=== PATIENT | male | born 1945 | race Caucasian/White ===

== ENCOUNTER 2025-04-28 15:15 | Inpatient (IN) ==
[2025-04-28] MEDS: 0.9 % SODIUM CHLORIDE 1,000 ML IV ONE ×2 (15:41→18:23)
[2025-04-28 16:16] LABS: Basophils # (Auto) 0.03 K/mcL (0.00-0.30); Basophils % (Auto) 0.2 % (0.0-2.0); Eosinophils # (Auto) 0.02 K/mcL (0.00-0.70); Eosinophils % (Auto) 0.1 % (0.0-7.0); Hematocrit 35.8 % (40.1-51.0); Hemoglobin 11.4 g/dL (13.7-17.5); Lymphocytes # (Auto) 0.52 K/mcL (1.50-4.80); Lymphocytes % (Auto) 3.1 % (15.5-49.0); Mean Corpuscular HGB Conc 31.8 g/dL (31.0-36.0); Monocytes # (Auto) 0.77 K/mcL (0.10-0.90); Monocytes % (Auto) 4.6 % (1.0-12.0); Neutrophils % (Auto) 91.5 % (38.0-78.0); Platelet Count 275 K/mcL (140-440); RBC 3.54 M/mcL (4.63-6.08); WBC 16.6 K/mcL (4.5-11.0)
[2025-04-28 16:45] LABS: ALT/SGPT 10 U/L (<40); AST/SGOT 23 U/L (<40); Albumin 3.4 gm/dL (3.2-5.2); Albumin/Globulin Ratio 1.2 (1.0-2.3); Alkaline Phosphatase 118 U/L (39-117); Anion Gap 15.0 (8.0-16.0); Bilirubin,Total 0.6 mg/dL (0.1-1.0); Blood Urea Nitrogen 47 mg/dL (8-23); Calcium 8.5 mg/dL (8.6-10.4); Carbon Dioxide 12 mmol/L (22-30); Chloride 112 mmol/L (96-108); Globulin 2.8 gm/dL (2.2-3.7); Glucose 101 mg/dL (70-105); Potassium 4.1 mmol/L (3.3-5.1); Sodium 139 mmol/L (133-145); Thyroid Stimulating Hormone 1.53 uIU/mL (0.27-5.01)
[2025-04-28] MEDS: cefTRIAXone 1 GM VIAL IV ONE (17:07)
[2025-04-28 19:17] LABS: Anion Gap 14.0 (8.0-16.0); Blood Urea Nitrogen 45 mg/dL (8-23); Calcium 7.5 mg/dL (8.6-10.4); Carbon Dioxide 10 mmol/L (22-30); Chloride 117 mmol/L (96-108); Glucose 89 mg/dL (70-105); Potassium 4.4 mmol/L (3.3-5.1); Sodium 141 mmol/L (133-145)
[2025-04-28 20:43] LABS: Bacteria,Urine Many /hpf (0); Bilirubin,Urine NEGATIVE (Negative); Color,Urine LT. YELLOW; Glucose,Urine (UA) NEGATIVE (Negative); Ketones,Urine NEGATIVE (Negative); Leukocyte Esterase,Urine LARGE /uL (Negative); PH,Urine 7.0 (5.0-9.0); Protein,Urine 100 mg/dL (Negative); Specific Gravity,Urine 1.010 (1.000-1.035); Urobilinogen,Urine 0.2 mg/dL
[2025-04-28] MEDS: 0.9 % SODIUM CHLORIDE 1,000 ML IV SCH (22:14)
[2025-04-29] MEDS ORDERED: POTASSIUM CHLORIDE 40 MEQ in DEXTROSE 5% IN WATER 500 ML IV PRN (00:48)
[2025-04-29] MEDS ORDERED: POTASSIUM CHLORIDE 20 MEQ TABLET PO PRN (00:48)
[2025-04-29] MEDS ORDERED: ACETAMINOPHEN 325 MG TABLET PO PRN (00:48)
[2025-04-29] MEDS ORDERED: POLYETHYLENE GLYCOL 3350 17 GM PACKET PO PRN (00:48)
[2025-04-29] MEDS ORDERED: IPRATROPIUM/ALBUTEROL 3 ML AMPUL.NEB NEB PRN (00:48)
[2025-04-29] MEDS ORDERED: METOCLOPRAMIDE 10 MG/2 ML VIAL IV PRN (00:48)
[2025-04-29] MEDS ORDERED: ONDANSETRON 4 MG/2 ML VIAL IV PRN (00:48)
[2025-04-29] MEDS: CEFEPIME 1 GM VIAL ONE (01:48)
[2025-04-29] MEDS: SODIUM BICARBONATE VIAL 150 MEQ in WATER FOR INJECTION,STERILE 850 ML IV SCH ×3 (01:56→16:35)
[2025-04-29] MEDS: CEFEPIME 1 GM VIAL IV SCH ×2 (01:56→11:05)
[2025-04-29] MEDS: 0.9 % SODIUM CHLORIDE 10 ML SYRINGE IV SCH ×2 (01:57→08:59)
[2025-04-29] MEDS ORDERED: 0.9 % SODIUM CHLORIDE 10 ML SYRINGE IV PRN (06:00)
[2025-04-29 06:45] LABS: Creatine Kinase 834 U/L (24-195)
[2025-04-29 07:04] LABS: ALT/SGPT 12 U/L (<40); AST/SGOT 45 U/L (<40); Albumin 3.4 gm/dL (3.2-5.2); Albumin/Globulin Ratio 1.3 (1.0-2.3); Alkaline Phosphatase 116 U/L (39-117); Anion Gap 17.0 (8.0-16.0); Bilirubin,Direct 0.2 mg/dL (<0.3); Bilirubin,Total 0.6 mg/dL (0.1-1.0); Blood Urea Nitrogen 41 mg/dL (8-23); Calcium 8.4 mg/dL (8.6-10.4); Carbon Dioxide 12 mmol/L (22-30); Chloride 118 mmol/L (96-108); Globulin 2.6 gm/dL (2.2-3.7); Glucose 77 mg/dL (70-105); Phosphorous 4.7 mg/dL (2.5-4.5); Potassium 3.9 mmol/L (3.3-5.1); Sodium 147 mmol/L (133-145); Triglycerides 61 mg/dL (<150); Uric Acid 6.1 mg/dL (2.5-8.0)
[2025-04-29] MEDS ORDERED: HEPARIN 500 UNIT/5 ML SYRINGE IV ONE (08:28)
[2025-04-29] MEDS ORDERED: LIDOCAINE 1% 10 ML VIAL SQ ONE (08:28)
[2025-04-29] MEDS ORDERED: SODIUM CHLORIDE IRRIG SOLUTION 250 ML BOTTLE IRR ONE (08:28)
[2025-04-29] MEDS: SODIUM BICARBONATE 650 MG TABLET PO ONE ×2 (08:41→09:11)
[2025-04-29] MEDS: DEXTROSE 5% IN WATER 500 ML IV ONE (08:53)
[2025-04-29] MEDS: DOCUSATE SODIUM 100 MG CAPSULE PO SCH (08:57)
[2025-04-29] MEDS: HEPARIN 10 UNITS/ML 5ML FLUSH IV SCH ×2 (08:57)
[2025-04-29] MEDS: HEPARIN 5,000 UNIT/ML VIAL SQ SCH (08:57)
[2025-04-29 09:08] LABS: Basophils # (Auto) 0.04 K/mcL (0.00-0.30); Basophils % (Auto) 0.2 % (0.0-2.0); Eosinophils # (Auto) 0.03 K/mcL (0.00-0.70); Eosinophils % (Auto) 0.2 % (0.0-7.0); Hematocrit 35.0 % (40.1-51.0); Hemoglobin 11.2 g/dL (13.7-17.5); Lymphocytes # (Auto) 0.90 K/mcL (1.50-4.80); Lymphocytes % (Auto) 5.5 % (15.5-49.0); Mean Corpuscular HGB Conc 32.0 g/dL (31.0-36.0); Monocytes # (Auto) 0.89 K/mcL (0.10-0.90); Monocytes % (Auto) 5.4 % (1.0-12.0); Neutrophils % (Auto) 88.2 % (38.0-78.0); Platelet Count 273 K/mcL (140-440); RBC 3.55 M/mcL (4.63-6.08); WBC 16.4 K/mcL (4.5-11.0)
[2025-04-29] MEDS: LABETALOL HCL 20 MG/4 ML VIAL IV PRN (09:11)
[2025-04-29 10:04] LABS: Polychromasia 1+ (None Seen); RBC Morphology ABNORMAL (Normal)
[2025-04-29] MEDS ORDERED: SODIUM BICARBONATE VIAL 150 MEQ in WATER FOR INJECTION,STERILE 850 ML IV SCH (11:00)
[2025-04-29 14:44] LABS: Anion Gap 14.0 (8.0-16.0); Blood Urea Nitrogen 39 mg/dL (8-23); Calcium 7.3 mg/dL (8.6-10.4); Carbon Dioxide 17 mmol/L (22-30); Chloride 109 mmol/L (96-108); Glucose 104 mg/dL (70-105); Potassium 2.7 mmol/L (3.3-5.1); Sodium 140 mmol/L (133-145)
[2025-04-29] MEDS: POTASSIUM CHLORIDE 10 MEQ/100 ML BAG IV SCH (15:11)
[2025-04-29] MEDS: METOPROLOL TARTRATE 25 MG TABLET PO SCH (21:49)
[2025-04-30 06:31] LABS: ALT/SGPT 10 U/L (<40); AST/SGOT 30 U/L (<40); Albumin 2.8 gm/dL (3.2-5.2); Albumin/Globulin Ratio 1.2 (1.0-2.3); Alkaline Phosphatase 85 U/L (39-117); Anion Gap 10.0 (8.0-16.0); Bilirubin,Direct 0.4 mg/dL (<0.3); Bilirubin,Total 1.0 mg/dL (0.1-1.0); Blood Urea Nitrogen 39 mg/dL (8-23); Calcium 7.9 mg/dL (8.6-10.4); Carbon Dioxide 24 mmol/L (22-30); Chloride 104 mmol/L (96-108); Creatine Kinase 289 U/L (24-195); Globulin 2.3 gm/dL (2.2-3.7); Glucose 81 mg/dL (70-105); Phosphorous 2.7 mg/dL (2.5-4.5); Potassium 3.3 mmol/L (3.3-5.1); Sodium 138 mmol/L (133-145); Triglycerides 73 mg/dL (<150); Uric Acid 4.7 mg/dL (2.5-8.0)
[2025-04-30 06:43] LABS: Basophils # (Auto) 0.07 K/mcL (0.00-0.30); Basophils % (Auto) 0.6 % (0.0-2.0); Eosinophils # (Auto) 0.25 K/mcL (0.00-0.70); Eosinophils % (Auto) 2.1 % (0.0-7.0); Hematocrit 28.6 % (40.1-51.0); Hemoglobin 9.2 g/dL (13.7-17.5); Lymphocytes # (Auto) 1.03 K/mcL (1.50-4.80); Lymphocytes % (Auto) 8.6 % (15.5-49.0); Mean Corpuscular HGB Conc 32.2 g/dL (31.0-36.0); Monocytes # (Auto) 0.65 K/mcL (0.10-0.90); Monocytes % (Auto) 5.5 % (1.0-12.0); Neutrophils % (Auto) 82.9 % (38.0-78.0); Platelet Count 216 K/mcL (140-440); RBC 2.88 M/mcL (4.63-6.08); WBC 11.9 K/mcL (4.5-11.0)
[2025-04-30] MEDS: MAGNESIUM SULFATE 2 GM/50 ML BAG IV PRN (08:50)
[2025-04-30] MEDS: POTASSIUM CHLORIDE 20 MEQ TABLET PO PRN (08:51)
[2025-04-30] MEDS: ATORVASTATIN 20 MG TABLET PO SCH (08:51)
[2025-04-30] MEDS: SENNOSIDES 1 TABLET PO PRN (13:20)
[2025-05-01 06:44] LABS: ALT/SGPT 14 U/L (<40); AST/SGOT 27 U/L (<40); Albumin 2.9 gm/dL (3.2-5.2); Albumin/Globulin Ratio 1.0 (1.0-2.3); Alkaline Phosphatase 93 U/L (39-117); Anion Gap 12.0 (8.0-16.0); Bilirubin,Direct 0.4 mg/dL (<0.3); Bilirubin,Total 0.9 mg/dL (0.1-1.0); Blood Urea Nitrogen 49 mg/dL (8-23); Calcium 8.6 mg/dL (8.6-10.4); Carbon Dioxide 21 mmol/L (22-30); Chloride 108 mmol/L (96-108); Globulin 2.8 gm/dL (2.2-3.7); Glucose 101 mg/dL (70-105); Phosphorous 2.8 mg/dL (2.5-4.5); Potassium 3.7 mmol/L (3.3-5.1); Sodium 141 mmol/L (133-145); Triglycerides 93 mg/dL (<150); Uric Acid 4.7 mg/dL (2.5-8.0)
[2025-05-01 07:02] LABS: Basophils # (Auto) 0.08 K/mcL (0.00-0.30); Basophils % (Auto) 0.6 % (0.0-2.0); Eosinophils # (Auto) 0.33 K/mcL (0.00-0.70); Eosinophils % (Auto) 2.4 % (0.0-7.0); Hematocrit 31.4 % (40.1-51.0); Hemoglobin 9.9 g/dL (13.7-17.5); Lymphocytes # (Auto) 0.94 K/mcL (1.50-4.80); Lymphocytes % (Auto) 6.9 % (15.5-49.0); Mean Corpuscular HGB Conc 31.5 g/dL (31.0-36.0); Monocytes # (Auto) 0.78 K/mcL (0.10-0.90); Monocytes % (Auto) 5.8 % (1.0-12.0); Neutrophils % (Auto) 83.7 % (38.0-78.0); Platelet Count 218 K/mcL (140-440); RBC 3.10 M/mcL (4.63-6.08); WBC 13.6 K/mcL (4.5-11.0)
[2025-05-02 09:47] LABS: Hematocrit 32.8 % (40.1-51.0); Hemoglobin 10.4 g/dL (13.7-17.5); Mean Corpuscular HGB Conc 31.7 g/dL (31.0-36.0); Platelet Count 224 K/mcL (140-440); RBC 3.26 M/mcL (4.63-6.08); WBC 11.5 K/mcL (4.5-11.0)
[2025-05-02 10:12] LABS: RBC Morphology NORMAL (Normal)
== END 2025-05-02 15:45 | DRG 871 ==
LOC: ED 15:15 → ICU 04-29 00:39 → MEDSUR 05-01 00:08
PROVIDERS: ADMIT Internal Medicine; ATTEND Internal Medicine